=== PATIENT | female | born 1990 | race Caucasian/White ===

== ENCOUNTER 2016-10-18 17:06 | Emergency (ER) | payer OTHER ==
[~2016-10-18] VITALS: Ht 162.6 cm; Wt 73.6 kg
[2016-10-18] MEDS ORDERED: MOTRIN800 MG PO (18:45)
[2016-10-18] MEDS ORDERED: ULTRAM50 MG PO (18:45)
[2016-10-18 19:13] VITALS: BP 110/75
== END 2016-10-18 19:16 | disposition home or self-care (01) ==
LOC: EME 17:06
DX: S93.402A Sprain of unspecified ligament of left ankle, initial encounter (principal); W01.0XXA Fall on same level from slipping, tripping and stumbling without subsequent striking against object, initial encounter; X50.1XXA Overexertion from prolonged static or awkward postures, initial encounter
CPT/HCPCS: 73610; 99281; 99284